=== PATIENT | male | born 1975 | race Caucasian/White ===

== ENCOUNTER 2017-11-24 07:52 | Emergency (ER) | payer MEDICAID ==
[~2017-11-24] VITALS: Ht 177.8 cm; Wt 61.4 kg
[2017-11-24 07:56] VITALS: Ht 177.8 cm; Wt 61.4 kg
[2017-11-24 10:14] VITALS: BP 137/89
== END 2017-11-24 10:19 | disposition home or self-care (01) ==
LOC: D.ER 07:52
DX: S46.911A Strain of unspecified muscle, fascia and tendon at shoulder and upper arm level, right arm, initial encounter (principal); V19.9XXA Pedal cyclist (driver) (passenger) injured in unspecified traffic accident, initial encounter; Y93.55 Activity, bike riding; Y92.410 Unspecified street and highway as the place of occurrence of the external cause; S50.311A Abrasion of right elbow, initial encounter; M25.521 Pain in right elbow; F17.200 Nicotine dependence, unspecified, uncomplicated

== ENCOUNTER 2018-05-23 13:10 | Emergency (ER) | payer MEDICAID ==
[~2018-05-23] VITALS: Ht 177.8 cm; Wt 63.6 kg
[2018-05-23 13:14] VITALS: BP 124/80; Ht 177.8 cm; Wt 63.6 kg
[2018-05-23] MEDS ORDERED: ULTRAM50 MG PO (14:35)
== END 2018-05-23 15:00 | disposition home or self-care (01) ==
LOC: D.ER 13:10
DX: S00.83XA Contusion of other part of head, initial encounter (principal); X58.XXXA Exposure to other specified factors, initial encounter

== ENCOUNTER 2019-11-16 14:12 | Inpatient (IN) | payer OTHER ==
[~2019-11-16] VITALS: Ht 177.8 cm; Wt 62.1 kg
[~2019-11-16 14:12] MED LIST: ULTRAM50 MG PO
[2019-11-16 14:55] LABS: BASOPHILS 1.1 % (0-2); EOSINOPHILS 2.8 % (0-7); HEMATOCRIT 36.8 % (42.0-54.0); HEMOGLOBIN 12.6 g/dL (13.5-17.5); IMMATURE GRANULOCYTES 0.2 % (0-5); LYMPHOCYTES 29.4 % (15-50); MCH 29.8 pg (26.0-34.0); MCHC 34.2 g/dL (31.0-37.0); MEAN PLATELET VOLUME 9.4 fL (7.4-10.4); MONOCYTES 17.3 % (2-11); NEUTROPHILS 49.2 % (40-80); PLATELET COUNT 376 10x3/uL (130-400); RBC 4.23 10x6/uL (4.20-6.10); RDW 15.2 % (11.5-14.5); WBC 6.4 10x3/uL (4.8-10.8)
[2019-11-16 15:25] LABS: CALC OSMOLALITY 268 mosm/kg (275-300); CALCIUM 8.2 mg/dL (8.5-10.1); CARBON DIOXIDE 29.6 mmol/L (21.0-32.0); CHLORIDE - SERUM 102 mmol/L (98-107); CREATININE - SERUM 0.6 mg/dL (0.6-1.3); GLUCOSE 100 mg/dL (74-106); POTASSIUM - SERUM 3.4 mmol/L (3.5-5.1); SODIUM 135 mmol/L (136-145); UREA NITROGEN 10 mg/dL (7-18); eGFR NON AFRICAN AMERICAN > 90 mL/min (90-120)
[2019-11-16 15:33] LABS: ALBUMIN 2.7 g/dL (3.4-5.0); ALKALINE PHOSPHATASE 352 U/L (30-120); AMYLASE - SERUM 34 U/L (25-115); LIPASE 106 U/L (73-393); PROTEIN - SERUM 6.7 g/dL (6.4-8.2)
[2019-11-16 15:35] LABS: ALT (SGPT) 1128 U/L (10-68); TROPONIN-I < 0.017 ng/mL (0.000-0.060)
[2019-11-16 17:42] VITALS: BP 117/74; BMI 19.6
--- NOTE | 2019-11-16 17:55 | NUR ---
ALERT AND OREINTED X4. TENDERNESS NOTED TO RUQ ANTERIOR ON PALPATION WITH BOWEL SOUNDS NOTED X4. SKIN COLOR JAUNDICED AND INTACT. IVF INFUSING TO RIGHT F/A AT PRESRIBED RATE WITH NO S/S OF INFECTION/INFILTRATION. RESP EVEN AND CTA. ENCOURAGED TO USE CALL LIGHT FOR ASSIST.
[2019-11-16 20:00] VITALS: BP 105/71
[2019-11-17] VITALS: BP 107/79
[2019-11-17 01:03] LABS: BILIRUBIN 3+ (NEGATIVE); KETONE NEGATIVE (NEGATIVE); NITRITE NEGATIVE (NEGATIVE); UROBILINOGEN NORMAL mg/dL (< 2)
[2019-11-17 01:04] LABS: BACTERIA FEW HPF (NONE SEEN); EPITHELIAL CELLS 0-5 /hpf (0-5)
[2019-11-17 04:00] VITALS: BP 107/68
[2019-11-17 05:50] LABS: HEMATOCRIT 36.2 % (42.0-54.0); HEMOGLOBIN 12.2 g/dL (13.5-17.5); MCH 29.5 pg (26.0-34.0); MCHC 33.7 g/dL (31.0-37.0); MCV 87.7 fL (80.0-100.0); MEAN PLATELET VOLUME 10.2 fL (7.4-10.4); PLATELET COUNT 369 10x3/uL (130-400); RBC 4.13 10x6/uL (4.20-6.10); RDW 15.6 % (11.5-14.5); WBC 5.6 10x3/uL (4.8-10.8)
[2019-11-17 06:00] LABS: ALBUMIN 2.2 g/dL (3.4-5.0); ALKALINE PHOSPHATASE 301 U/L (30-120); BILIRUBIN - TOTAL 12.03 mg/dL (0.2-1.3); CALCIUM 8.1 mg/dL (8.5-10.1); CARBON DIOXIDE 28.3 mmol/L (21.0-32.0); CHLORIDE - SERUM 102 mmol/L (98-107); CREATININE - SERUM 0.5 mg/dL (0.6-1.3); GLUCOSE 89 mg/dL (74-106); POTASSIUM - SERUM 3.9 mmol/L (3.5-5.1); SODIUM 136 mmol/L (136-145); eGFR NON AFRICAN AMERICAN > 90 mL/min (90-120)
[2019-11-17 06:02] LABS: CALC OSMOLALITY 268 mosm/kg (275-300); UREA NITROGEN 7 mg/dL (7-18)
[2019-11-17 06:03] LABS: ALT (SGPT) 823 U/L (10-68)
--- NOTE | 2019-11-17 07:00 | NUR ---
RESTING IN BED WITH EYES CLOSED. RESPIRATIONS EVEN AND UNLABORED. NO S/S OF ACUTE DISTRESS NOTED. JAUNDICE IN COLOR. IV TO RIGHT FOREARM, NS INFUSING @ 75ML/HR. SITE PATENT WITHOUT REDNESS OR SWELLING. COVID PENDING. CALL LIGHT IN REACH. WILL CONTINUE TO MONITOR.
[2019-11-17 08:44] VITALS: BP 113/80
[2019-11-17 10:47] LABS: HYPOCHROMASIA OCC; LYMPHOCYTES 30 % (15-50); MONOCYTES 14 % (2-11); NEUTROPHILS 53 % (40-80); PLATELET ESTIMATE NORMAL; ROULEAUX OCC
--- NOTE | 2019-11-17 10:56 | NUR ---
I have reviewed this patient and I concur with the Shift Assessment completed by the Licensed Practical Nurse today this shift.
[2019-11-17 12:41] VITALS: BP 120/60
[2019-11-17 13:34] VITALS: BMI 40.8
[2019-11-17 15:20] VITALS: Ht 177.8 cm; Wt 62.1 kg
[2019-11-17 15:30] LABS: % SATURATION 97 % (15-55); IRON 228 ug/dl (35-150); TOTAL IRON BIND CAPACITY 235 ug/dl (260-445)
[2019-11-17 15:41] LABS: UNSAT IRON BIND CAPACITY 7 ug/dl (150-375)
[2019-11-17 16:21] VITALS: BP 104/68
--- NOTE | 2019-11-17 18:18 | NUR ---
A&O IN BATHROOM CHANGING INTO A GOWN. NO C/O PAIN. C/O NAUSEA, GAVE ZOFRAN. NO S/S OF ACUTE DISTRESS NOTED. CALL LIGHT IN REACH. WILL CONTINUE TO MONITOR.
[2019-11-17 20:00] VITALS: BP 112/74
--- NOTE | 2019-11-17 21:00 | NUR ---
SUPINE IN BED, SPONTANEOUS EYE OPENING UPON VERBAL STIMULATION. DENIES NEEDS. REPORTS LOOSE BMS, NO BLEEDING OR DISCOMFORT WHILE URINATING. CTM.
[2019-11-18] VITALS: BP 115/75
--- NOTE | 2019-11-18 02:06 | NUR ---
I have reviewed this patient and I concur with the Shift Assessment completed by the Licensed Practical Nurse today this shift.
[2019-11-18 04:00] VITALS: BP 103/71
--- NOTE | 2019-11-18 07:47 | NUR ---
0700 BEDSIDE REPORT RECEIVED AWAKE ALERT ORIENTED UP TO BATHROOM WITHOUT COMPLICATIONS STATES DIARRHEA
[2019-11-18 08:22] VITALS: BP 82/49
[2019-11-18 09:51] LABS: BASOPHILS 0.6 % (0-2); EOSINOPHILS 1.9 % (0-7); HEMATOCRIT 38.2 % (42.0-54.0); HEMOGLOBIN 12.8 g/dL (13.5-17.5); IMMATURE GRANULOCYTES 0.1 % (0-5); LYMPHOCYTES 22.3 % (15-50); MCH 29.4 pg (26.0-34.0); MCHC 33.5 g/dL (31.0-37.0); MCV 87.6 fL (80.0-100.0); MEAN PLATELET VOLUME 9.4 fL (7.4-10.4); MONOCYTES 14.3 % (2-11); NEUTROPHILS 60.8 % (40-80); PLATELET COUNT 371 10x3/uL (130-400); RBC 4.36 10x6/uL (4.20-6.10); RDW 15.9 % (11.5-14.5)
[2019-11-18 09:52] LABS: WBC 7.2 10x3/uL (4.8-10.8)
--- NOTE | 2019-11-18 10:09 | NUR ---
0800 UP TO BATHROOM C/O DIARRHEA
[2019-11-18 10:10] LABS: CALC OSMOLALITY 266 mosm/kg (275-300); CALCIUM 8.1 mg/dL (8.5-10.1); CARBON DIOXIDE 28.2 mmol/L (21.0-32.0); CHLORIDE - SERUM 102 mmol/L (98-107); CREATININE - SERUM 0.6 mg/dL (0.6-1.3); GLUCOSE 88 mg/dL (74-106); SODIUM 135 mmol/L (136-145); UREA NITROGEN 6 mg/dL (7-18); eGFR NON AFRICAN AMERICAN > 90 mL/min (90-120)
--- NOTE | 2019-11-18 10:10 | NUR ---
0900 REFUSED NICODERM PATCH
--- NOTE | 2019-11-18 10:10 | NUR ---
1000 WANTING TO GO AMA CALLED DR SALCEDO OFFICE. SAID THEY WOULD PAGE HIM PT SIGNED AMA FORM AND WOULD NOT WAIT FOR DR AYON TO RETURN CALL REMOVED RIGHT FOREARM IV. ENCOURAGED PT TO WAIT FOR TO CALL BACK NOTIFIED A[facility]OSPACE MEDICINE PHYSICIAN PATIENT WALKED OUT I COULD NOT GET HIM TO REMAIN.
[2019-11-18 10:16] LABS: ALBUMIN 2.2 g/dL (3.4-5.0); ALKALINE PHOSPHATASE 327 U/L (30-120); ALT (SGPT) 620 U/L (10-68); BILIRUBIN - TOTAL 9.27 mg/dL (0.2-1.3)
[2019-11-18 13:11] LABS: HEPATITIS C ANTIBODY <0.1 S/CO RAT (0.0-0.9)
[2019-11-19 12:11] LABS: MITOCHONDRIAL ANTIBODY <20.0 Units (0.0-20.0); SMOOTH MUSCLE ABS (ACTIN) 25 Units (0-19)
== END 2019-11-18 10:00 | disposition left against medical advice (07) | DRG 442 ==
LOC: D.ER 14:12 → D.EDHOLD 16:51 → D.MS 16:51 → D.SDCHOLD 11-17 08:21 → D.MS 11-18 10:00
PROVIDERS: Family Medicine; Internal Medicine Gastroenterology; ADMIT Legal Medicine; ATTEND Legal Medicine
DX: B15.9 Hepatitis A without hepatic coma (principal); R17 Unspecified jaundice; K75.9 Inflammatory liver disease, unspecified; Z72.0 Tobacco use; R16.0 Hepatomegaly, not elsewhere classified